=== PATIENT | male | born 1975 | race Caucasian/White ===

== ENCOUNTER 2017-12-06 19:07 | Emergency (ER) | payer OTHER ==
[2017-12-06 19:14] VITALS: RESP 16
[2017-12-06] MEDS ORDERED: NS 1,000 ML IV ONE ×2 (20:17)
[2017-12-06 20:27] LABS: PLATELET COUNT 208 10^3/uL (150-400)
--- NOTE | 2017-12-06 21:06 | EDPHY ---
H & P Time Seen by Provider: 12/06/17 19:32 HPI/ROS: HPI Alcohol abuse, dehydration. 41-year-old male by private vehicle. Patient has a long history of alcohol abuse. He he drinks vodka daily. He has been drinking heavily for the last 3- 4 days. He came to the emergency department because he feels he has gotten very dehydrated. He is in a 12 step program at this time. His sponsor for this program was recently admitted to an inpatient detox program. He reports this was the catalyst that caused him to go back to drinking heavily. Denies any other ingestion. Last drink was shortly before arrival. ROS: Constitutional: No fever, no chills. No weakness. Eyes: No discharge. No changes in vision. ENT: No sore throat. No nasal congestion or rhinorrhea. Respiratory: No cough. No shortness of breath. Cardiac: No chest pain, no palpitations. Gastrointestinal: No abdominal pain, no vomiting, no diarrhea. Genitourinary: No hematuria. No dysuria or increased frequency with urination. Musculoskeletal: No back pain. No neck pain. No myalgias or arthralgias. Skin: No rashes. Neurological: No headache. No focal weakness or altered sensation. Past medical history: Alcohol abuse. Hypertension. Social history: Has a domestic partner. Nonsmoker. Currently here by himself. As above. Physical Exam: General Appearance: Alert, no distress. He appears relaxed and comfortable at this time This patient is responding to questions appropriately and in full sentences. This patient appears well-hydrated and well-nourished. Eyes: Pupils equal and round no pallor or injection. No lid edema, erythema or injection. Respiratory: There are no retractions, lungs are clear to auscultation with good air movement bilaterally. Cardiovascular: Regular rate and rhythm. Tachycardia. No murmur appreciated. Gastrointestinal: Abdomen is soft and nontender, no masses, bowel sounds normal. No focal tenderness at McBurney's point. No Dominguez sign. Neurological: Motor sensory function is grossly intact. Cranial nerves are normal. Gait is normal. Skin: Warm and dry, no rashes. Musculoskeletal: Neck is supple and nontender. Extremities are symmetrical. All joints range without pain or impingement. Psychiatric: No agitation. No depression. Database: EKG: Imaging: Procedures: Emergency department course: Vital signs reviewed. He is tachycardic. Vital signs are otherwise unremarkable. He will be started on IV normal saline with 1-2 L to be given over the next 1-2 hours for hydration. He does not show any signs of withdrawal. 10:30 p.m., the patient has had 2 L of IV normal saline. His partner is in the room with him. His heart rate has come down to the mid 90s. He is clinically sober. His partner who is sober will take him home. He feels comfortable being discharged. I talked to him about the detox program at [facility]. He will call them in the morning. Return to emergency department precautions were reviewed with him. He has Librium at home. Follow-up was discussed thoroughly. All of his questions were answered. He was discharged in good condition. Differential Diagnosis: The differential diagnosis on this patient includes but is not limited to alcohol abuse, alcohol intoxication. Alcohol withdrawal unlikely. This represents a partial list of diagnoses considered. These considerations are based on history, physical exam, past history, reassessment and diagnostic testing. Constitutional: Initial Vital Signs Temperature (C) 36.9 C 12/06/17 19:12 Heart Rate 129 H 12/06/17 19:12 Respiratory Rate 16 12/06/17 19:12 Blood Pressure 139/85 H 12/06/17 19:12 O2 Sat (%) 95 12/06/17 19:12 O2 Delivery Mode Room Air Allergies/Adverse Reactions: No Known Allergies Allergy (Unverified 12/06/17 19:11) Home Medications: Medication Instructions Recorded Gabapentin 12/06/17 Metoprolol Succinate 12/06/17 buPROPion 12/06/17 Medical Decision Making - Data Points Laboratory Results: Laboratory Results 12/06/17 20:10 12/06/17 20:10 12/06/17 12/06/17 12/06/17 20:45 20:10 20:10 WBC 4.92 10^3/uL 10^3/uL (3.80-9.50) RBC 5.29 10^6/uL 10^6/uL (4.40-6.38) Hgb 17.3 g/dL g/dL (13.7-17.5) Hct 49.6 % % (40.0-51.0) MCV 93.8 fL fL (81.5-99.8) MCH 32.7 pg pg (27.9-34.1) MCHC 34.9 g/dL g/dL (32.4-36.7) RDW 13.2 % % (11.5-15.2) Plt Count 208 10^3/uL 10^3/uL (150-400) MPV 9.0 fL fL (8.7-11.7) Neut % (Auto) 76.4 % H % (39.3-74.2) Lymph % (Auto) 15.7 % % (15.0-45.0) [place] % (Auto) 4.9 % % (4.5-13.0) Eos % (Auto) 2.0 % % (0.6-7.6) Baso % (Auto) 0.8 % % (0.3-1.7) Nucleat RBC Rel Count 0.0 % % (0.0-0.2) Absolute Neuts (auto) 3.76 10^3/uL 10^3/uL (1.70-6.50) Absolute Lymphs (auto) 0.77 10^3/uL L 10^3/uL (1.00-3.00) Absolute Monos (auto) 0.24 10^3/uL L 10^3/uL (0.30-0.80) Absolute Eos (auto) 0.10 10^3/uL 10^3/uL (0.03-0.40) Absolute Basos (auto) 0.04 10^3/uL 10^3/uL (0.02-0.10) Absolute Nucleated RBC 0.00 10^3/uL 10^3/uL (0-0.01) Immature Gran % 0.2 % % (0.0-1.1) Immature Gran # 0.01 10^3/uL 10^3/uL (0.00-0.10) Sodium 147 mEq/L H mEq/L (135-145) Potassium 4.6 mEq/L mEq/L (3.5-5.2) Chloride 101 mEq/L mEq/L (97-110) Carbon Dioxide 21 mEq/l L mEq/l (22-31) Anion Gap 25 mEq/L H mEq/L (8-16) BUN 10 mg/dL mg/dL (7-23) Creatinine 0.8 mg/dL mg/dL (0.7-1.3) Estimated GFR > 60 Glucose 79 mg/dL mg/dL (70-100) Calcium 9.0 mg/dL mg/dL (8.5-10.4) Urine Opiates Screen NEGATIVE (NEGATIVE) Urine Barbiturates NEGATIVE (NEGATIVE) Ur Phencyclidine Scrn NEGATIVE (NEGATIVE) Ur Amphetamine Screen NEGATIVE (NEGATIVE) U Benzodiazepines Scrn NON-NEGATIVE H (NEGATIVE) Urine Cocaine Screen NEGATIVE (NEGATIVE) U Marijuana (THC) Screen NEGATIVE (NEGATIVE) Ethyl Alcohol 420 mg/dL H* mg/dL (0-10) Medications Given: Discontinued Medications Sodium Chloride (Ns) 1,000 mls @ 0 mls/hr IV ONCE ONE; Wide Open PRN Reason: Protocol Stop: 12/06/17 20:18 Last Admin: 12/06/17 20:48 Dose: 1,000 mls Sodium Chloride (Ns) 1,000 mls @ 0 mls/hr IV ONCE ONE; Wide Open PRN Reason: Protocol Stop: 12/06/17 20:18 Last Admin: 12/06/17 21:47 Dose: 1,000 mls Departure - Departure Disposition: Home, Routine, Self-Care Clinical Impression: Alcoholic intoxication, Alcohol dependence Condition: Good Instructions: Abuse of Alcohol (ED) Additional Instructions: Read and follow provided instructions. Contact [facility] to discuss detox program options. Return to the emergency department for worsening symptoms, withdrawal seizures or other serious concerns. Referrals: JAKE MARKHAM [Other] - As per Instructions JULISSA CHÁVEZO,. [Clinic] - As per Instructions
[2017-12-06 21:16] VITALS: O2SAT 98
[2017-12-06 22:50] VITALS: BP 140/82; PULSE 108; TEMP 98.6
== END 2017-12-06 22:49 | disposition home or self-care (01) ==
DX: F10.229 Alcohol dependence with intoxication, unspecified (principal); E86.9 Volume depletion, unspecified; I10 Essential (primary) hypertension
CPT/HCPCS: 80305; G0480

== ENCOUNTER → 2018-03-24 | Outpatient (CLI) | payer OTHER | LOC: FIMAGING 08:32 | PROVIDERS: ATTEND Internal Medicine Gastroenterology | DX: R94.5 Abnormal results of liver function studies (principal); K76.9 Liver disease, unspecified ==